=== PATIENT | male | born 1985 | race Caucasian/White ===

== ENCOUNTER 2020-12-16 18:13 | Emergency (ER) | payer OTHER, SELFPAY ==
--- NOTE | ~2020-12-16 | XR_ITS ---
EXAMINATION: XR TIBIA/FIBULA, RIGHT X-RAY ANKLE, RIGHT X-RAY ANKLE, LEFT CLINICAL INFORMATION: Pain, redness, swelling. COMPARISON: None TECHNIQUE: AP and lateral views of the right tibia/fibula. AP, mortise, and lateral views of the right and left ankle. FINDINGS: Right tibia/fibula: No acute fracture or dislocation. Mild medial compartment joint space narrowing within the right knee with small marginal osteophytes. No lytic or blastic osseous lesion. No abnormal soft tissue calcification. Right ankle: No acute fracture or dislocation. The ankle mortise is maintained. Tiny tibiotalar marginal osteophytes. No lytic or blastic osseous lesion. No abnormal soft tissue calcification. Mild circumferential soft tissue swelling. Left ankle: No acute fracture or dislocation. The ankle mortise is maintained. Tiny tibiotalar marginal osteophytes. No osseous erosion. No abnormal soft tissue calcification. Mild circumferential soft tissue swelling. XR/XR tibia fibula RT 2V IMPRESSION: Right tibia/fibula: Mild medial compartment osteoarthritis within the right knee. No acute osseous abnormality. Right ankle: Mild soft tissue swelling without acute osseous abnormality. Minimal tibiotalar arthrosis. Left ankle: Mild soft tissue swelling without acute osseous abnormality. Minimal tibiotalar arthrosis.
--- NOTE | ~2020-12-16 | XR_ITS ---
EXAMINATION: XR TIBIA/FIBULA, RIGHT X-RAY ANKLE, RIGHT X-RAY ANKLE, LEFT CLINICAL INFORMATION: Pain, redness, swelling. COMPARISON: None TECHNIQUE: AP and lateral views of the right tibia/fibula. AP, mortise, and lateral views of the right and left ankle. FINDINGS: Right tibia/fibula: No acute fracture or dislocation. Mild medial compartment joint space narrowing within the right knee with small marginal osteophytes. No lytic or blastic osseous lesion. No abnormal soft tissue calcification. Right ankle: No acute fracture or dislocation. The ankle mortise is maintained. Tiny tibiotalar marginal osteophytes. No lytic or blastic osseous lesion. No abnormal soft tissue calcification. Mild circumferential soft tissue swelling. Left ankle: No acute fracture or dislocation. The ankle mortise is maintained. Tiny tibiotalar marginal osteophytes. No osseous erosion. No abnormal soft tissue calcification. Mild circumferential soft tissue swelling. XR/XR ankle LT 2V IMPRESSION: Right tibia/fibula: Mild medial compartment osteoarthritis within the right knee. No acute osseous abnormality. Right ankle: Mild soft tissue swelling without acute osseous abnormality. Minimal tibiotalar arthrosis. Left ankle: Mild soft tissue swelling without acute osseous abnormality. Minimal tibiotalar arthrosis.
--- NOTE | ~2020-12-16 | US_ITS ---
EXAMINATION: US VENOUS ULTRASOUND WITH DOPPLER LOWER EXTREMITY, BILATERAL CLINICAL INFORMATION: Bilateral lower extremity pain and swelling COMPARISON: None TECHNIQUE: Ultrasound of the deep veins is performed from the hip to the calf with compression sonography and color and pulse Doppler assessment. Spectral analysis with color-flow imaging is performed. FINDINGS: RIGHT: There is normal venous compression and respiratory variation and augmented flow. The visualized common femoral vein, superficial femoral vein, profunda femoral vein, popliteal vein, and the trifurcation region shows no evidence of deep venous thrombosis. There is no significant popliteal fossa cyst. LEFT: There is normal venous compression and respiratory variation and augmented flow. The visualized common femoral vein, superficial femoral vein, profunda femoral vein, popliteal vein, and the trifurcation region shows no evidence of deep venous thrombosis. There is no significant popliteal fossa cyst. If the patient's symptoms persist, followup ultrasound in 5 days 7 days might be of value to exclude proximal propagation from a non-visualized calf vein. US/US venous duplex LE BI IMPRESSION: No DVT demonstrated in either lower extremity.
--- NOTE | ~2020-12-16 | XR_ITS ---
EXAMINATION: XR TIBIA/FIBULA, RIGHT X-RAY ANKLE, RIGHT X-RAY ANKLE, LEFT CLINICAL INFORMATION: Pain, redness, swelling. COMPARISON: None TECHNIQUE: AP and lateral views of the right tibia/fibula. AP, mortise, and lateral views of the right and left ankle. FINDINGS: Right tibia/fibula: No acute fracture or dislocation. Mild medial compartment joint space narrowing within the right knee with small marginal osteophytes. No lytic or blastic osseous lesion. No abnormal soft tissue calcification. Right ankle: No acute fracture or dislocation. The ankle mortise is maintained. Tiny tibiotalar marginal osteophytes. No lytic or blastic osseous lesion. No abnormal soft tissue calcification. Mild circumferential soft tissue swelling. Left ankle: No acute fracture or dislocation. The ankle mortise is maintained. Tiny tibiotalar marginal osteophytes. No osseous erosion. No abnormal soft tissue calcification. Mild circumferential soft tissue swelling. XR/XR ankle RT min 3V IMPRESSION: Right tibia/fibula: Mild medial compartment osteoarthritis within the right knee. No acute osseous abnormality. Right ankle: Mild soft tissue swelling without acute osseous abnormality. Minimal tibiotalar arthrosis. Left ankle: Mild soft tissue swelling without acute osseous abnormality. Minimal tibiotalar arthrosis.
[2020-12-16 18:54] VITALS: BP 110/72; PULSE 96; RESP 20; TEMP 37.1; O2SAT 96; BMI 27.4
--- NOTE | 2020-12-16 19:50 | ED_ITS ---
HPI - General Adult General Chief complaint: Extremity Injury, Lower Stated complaint: right leg pain Time Seen by Provider: 12/16/20 19:36 Source: patient Mode of arrival: ambulatory Limitations: no limitations History of Present Illness HPI narrative: Patient presents to the ED right posterior leg swelling with re dness and calf pain and redness and mild left ankle. Patient states having symptoms since Tuesday. Patient states on Tuesday he misses stepped into a ditch amount of irritated skin in a process. Patient denies any IV injection to lower extremities. Patient states no fever or chills. Patient denies any recent long travel. Related Data Previous Rx's Medication Instructions Recorded cephalexin 500 mg capsule 500 mg PO QID 7 Days #28 cap 12/17/20 doxycycline hyclate 100 mg capsule 100 mg PO BID 7 Days #14 cap 12/17/20 ketorolac 10 mg tablet 10 mg PO Q6H PRN 5 Days #20 tab 12/17/20 Allergies Allergy/AdvReac Type Severity Reaction Status Date / Time No Known Allergies Allergy Verified 12/16/20 21:29 Review of Systems Review of Systems: Yes all other systems are reviewed and are negative Constitutional: Constitutional: Reports as per HPI and Reports no additional constitutional complaints Eyes: Eyes: Reports as per HPI and Reports no additional eye complaints ENT: Reports system reviewed and no additional complaints, except as documented and Reports as per HPI Cardiovascular: Cardiovascular: Reports as per HPI and Reports no additional cardiovascular complaints Respiratory: Respiratory: Reports as per HPI and Reports no additional respiratory complaints Gastrointestinal: Gastrointestinal: Reports as per HPI and Reports no additional gastrointestinal complaints Genitourinary: Genitourinary: Reports no additional male genitourinary complaints and Reports as per HPI Musculoskeletal: Musculoskeletal: Reports no additional musculoskeletal complaints and Reports as per HPI Comments: Right leg posterior calf swelling and redness. Left ankle redness mild swelling. Neurologic: Reports system reviewed and no additional complaints, except as documented and Reports as per HPI Psychiatric: Psychiatric: Reports no additional psychiatric complaints and Reports as per HPI [facility] Past Medical History Medical History (Updated 12/17/20 @ 01:43 by PRISCILA Vidal) No known health problems Social History Social History Advance Directives: No Advance Directives Information Provided: No Physical Exam Vital Signs: Vital Signs: Last Vital Signs Temp 99.3 F 12/16/20 22:58 Pulse 83 12/16/20 22:58 Resp 18 12/16/20 22:58 BP 110/69 12/16/20 22:58 Pulse Ox 98 12/16/20 22:58 Body Mass Index 27.4 Const: General: cooperative, healthy appearing, comfortable, no acute distress, well developed, alert, awake and Physically active Orien tation/consciousness: patient oriented x3 HENMT: Head: Yes normal to inspection, Yes No palpable skull fracture present, Yes normocephalic and Yes atraumatic Eyes: General: appearance normal, both eyes and all related structures Neck: Neck: Yes normal visual inspection, Yes full ROM, Yes no lymphadenopathy, Yes no meningeal signs, Yes trachea midline, Yes supple and No tender Chest: Chest palpation & inspection: normal inspection of the chest and normal palpation of entire chest wall Resp: Effort & Inspection: normal respiratory effort and able to speak in complete sentences Auscultation: clear to auscultation bilaterally Cardio: Jugular venous distension: no JVD Heart sounds: S1 normal heart sound present and S2 normal heart sound present GI: Inspection: Yes normal to inspection and No abdominal wall ecchymosis Palpation (GI): Soft to palpation, not firm, nontender and no guarding : General: No CVA tenderness and Yes no CVA tenderness Back/Spine/Pelvis: Back: no CVA tenderness, No CVA tenderness and No back tenderness Skin: Other: Redness Neuro: General: patient oriented x3, gait normal, no meningeal signs and CN's II-XI intact bilaterally Cranial nerves: Yes CN's II-XII intact bilaterally Extrem: Other: Upper/lower leg/hip images: 1. Positive for erythema and calf tenderness on palpation. Negative for any palpable mass on palpation. Ankle/foot/toe images: 1. Redness, tenderness, slight swelling. Negative for any deformity or crepitus. Motor/nose/vascular exam is intact Course Course Course Narrative: Patient will have labs drawn, x-ray, and bilateral ultrasound. Reevaluation(s) Reevaluation #1: Lactic acid elevated, ESR CRP elevated. X-rays negative for osteomyelitis. Ultrasound negative for blood clot. D-dimer was not ordered at triage I did not order D-dimer. Not suspecting PE. Patient not have any chest pain or shortness of breath. Vital signs are stable. Spoke with Dr. Mazreah the hospitalist who states patient could be discharged with p.o. antibiotics and try a p.o. trial. We will repeat lactic acid. Time: 22:30 Reevaluation #2: Repeat lactic acid came back negative. Dr. Gresham hospitalist was made aware of lactcic acid and she states patient could be discharged. Patient will be discharged with antibiotics and Toradol. Patient i nformed if redness spreads beyond marker he should return to the ED immediately Time: 01:42 Medical Decision Making MDM Narrative Medical decision making narrative: Cellulitis Lab Data Result diagrams: 12/16/20 19:56 12/16/20 19:56 Labs: Lab Results 12/16/20 12/16/20 12/16/20 Range/Units 19:56 19:56 19:56 WBC 6.7 (4.8-10.8) X10*3/uL RBC 4.50 L (4.60-5.80) X10*6/uL Hgb 13.8 L (14.0-18.0) g/dl Hct 39.7 L (42-52) % MCV 88.2 (80-98) fL MCH 30.7 (27.0-33.0) pg MCHC 34.8 (31.0-36.0) g/dl RDW 12.0 (11.0-16.0) % Plt Count 236 (160-400) X10*3/uL MPV 9.4 (9.4-12.4) fL Absolute Nucleated RBC 0.000 (0.0-0.012) X10*3/uL Nucleated RBC % (auto) 0.0 (0.0-0.2) /100WBC ESR (0-15) MM/HR D-Dimer 1022 NG/ML Sodium 133 L (135-145) mmol/L Potassium 4.0 (3.3-5.1) mmol/L Chloride 96 (96-108) mmol/L Carbon Dioxide 26 (22-29) mmol/L Anion Gap 15 (12-20) BUN 11 (9-16) mg/dL Creatinine 1.07 (0.5-1.4) mg/dL Estim Creat Clear Calc 93.3 Estimated GFR > 60 Random Glucose 79 (60-115) mg/dL Lactic Acid (0.5-2.0) mmol/L Lactic Acid Fup @ 2Hr (0.5-2.0) mmol/L Calcium 9.0 (8.4-10.2) mg/dL Total Bilirubin 0.7 (0.0-1.0) mg/dL AST 45 H (5-37) U/L ALT 33 (0-40) U/L Alkaline Phosphatase 49 (39-117) U/L C-Reactive Protein (< or = 0.50) mg/dL Total Protein 7.1 (6.5-8.0) g/dL Albumin 4.0 (3.5-5.0) g/dL Coronavirus (PCR) (Negative) Influenza Type A (PCR) (Negative) Influenza Type B (PCR) (Negative) RSV RNA Qual (PCR) (Negative) 12/16/20 12/16/20 12/16/20 Range/Units 19:56 19:56 19:56 WBC (4.8-10.8) X10*3/uL RBC (4.60-5.80) X10*6/uL Hgb (14.0-18.0) g/dl Hct (42-52) % MCV (80-98) fL MCH (27.0-33.0) pg MCHC (31.0-36.0) g/dl RDW (11.0-16.0) % Plt Count (160-400) X10*3/uL MPV (9.4-12.4) fL Absolute Nucleated RBC (0.0-0.012) X10*3/uL Nucleated RBC % (auto) (0.0-0.2) /100WBC ESR 36 H (0-15) MM/HR D-Dimer NG/ML Sodium (135-145) mmol/L Potassium (3.3-5.1) mmol/L Chloride (96-108) mmol/L Carbon Dioxide (22-29) mmol/L Anion Gap (12-20) BUN (9-16) mg/dL Creatinine (0.5-1.4) mg/dL Estim Creat Clear Calc Estimated GFR Random Glucose (60-115) mg/dL Lactic Acid 2.6 H* (0.5-2.0) mmol/L Lactic Acid Fup @ 2Hr (0.5-2.0) mmol/L Calcium (8.4-10.2) mg/dL Total Bilirubin (0.0-1.0) mg/dL AST (5-37) U/L ALT (0-40) U/L Alkaline Phosphatase (39-117) U/L C-Reactive Protein 14.41 H (< or = 0.50) mg/dL Total Protein (6.5-8.0) g/dL Albumin (3.5-5.0) g/dL Coronavirus (PCR) (Negative) Influenza Type A (PCR) (Negative) Influenza Type B (PCR) (Negative) RSV RNA Qual (PCR) (Negative) 12/16/20 12/17/20 Range/Units 22:19 00:39 WBC (4.8-10.8) X10*3/uL RBC (4.60-5.80) X10*6/uL Hgb (14.0-18.0) g/dl Hct (42-52) % MCV (80-98) fL MCH (27.0-33.0) pg MCHC (31.0-36.0) g/dl RDW (11.0-16.0) % Plt Count (160-400) X10*3/uL MPV (9.4-12.4) fL Absolute Nucleated RBC (0.0-0.012) X10*3/uL Nucleated RBC % (auto) (0.0-0.2) /100WBC ESR (0-15) MM/HR D-Dimer NG/ML Sodium (135-145) mmol/L Potassium (3.3-5.1) mmol/L Chloride (96-108) mmol/L Carbon Dioxide (22-29) mmol/L Anion Gap (12-20) BUN (9-16) mg/dL Creatinine (0.5-1.4) mg/dL Estim Creat Clear Calc Estimated GFR Random Glucose (60-115) mg/dL Lactic Acid (0.5-2.0) mmol/L Lactic Acid Fup @ 2Hr 0.9 (0.5-2.0) mmol/L Calcium (8.4-10.2) mg/dL Total Bilirubin (0.0-1.0) mg/dL AST (5-37) U/L ALT (0-40) U/L Alkaline Phosphatase (39-117) U/L C-Reactive Protein (< or = 0.50) mg/dL Total Protein (6.5-8.0) g/dL Albumin (3.5-5.0) g/dL Coronavirus (PCR) NEGATIVE (Negative) Influenza Type A (PCR) NEGATIVE (Negative) Influenza Type B (PCR) NEGATIVE (Negative) RSV RNA Qual (PCR) NEGATIVE (Negative) Discharge Plan Discharge Clinical Impression: Cellulitis Patient Disposition: Home, Self-Care Instructions: Cellulitis (ED) Additional Instructions: Return to the ED for worsening redness, redness spreading beyond marker, chest pain, shortness of breath, fever, chills, weakness, dizziness, increased swelling, or any other concerning symptoms. Prescriptions: New cephalexin 500 mg capsule 500 mg PO QID 7 Days Qty: 28 RF: 0 doxycycline hyclate 100 mg capsule 100 mg PO BID 7 Days Qty: 14 RF: 0 ketorolac 10 mg tablet 10 mg PO Q6H PRN (Reason: pain) 5 Days Qty: 20 RF: 0 Stand Alone Forms: Work/School Release Print Language: [place]ayan
[2020-12-16 20:06] LABS: Hematocrit 39.7 % (42-52); Hemoglobin 13.8 g/dl (14.0-18.0); Mean Corpuscular HGB Conc 34.8 g/dl (31.0-36.0); Mean Corpuscular Hemoglobin 30.7 pg (27.0-33.0); Mean Corpuscular Volume 88.2 fL (80-98); Mean Platelet Volume 9.4 fL (9.4-12.4); Platelet Count 236 X10*3/uL (160-400); White Blood Count 6.7 X10*3/uL (4.8-10.8)
[2020-12-16 20:15] LABS: D Dimer 1022 NG/ML
[2020-12-16 20:33] LABS: C Reactive Protein 14.41 mg/dL (< or = 0.50)
[2020-12-16 20:35] LABS: Alanine Aminotransferase 33 U/L (0-40); Alkaline Phosphatase 49 U/L (39-117); Anion Gap 15 (12-20); Aspartate Amino Transferase 45 U/L (5-37); Bilirubin Total 0.7 mg/dL (0.0-1.0); Blood Urea Nitrogen 11 mg/dL (9-16); Carbon Dioxide 26 mmol/L (22-29); Chloride 96 mmol/L (96-108); Creatinine Clr Calc Pharmacy 93.3; Estimated Glomerular Filt Rate > 60; Glucose Random 79 mg/dL (60-115); Sodium 133 mmol/L (135-145); Total Protein 7.1 g/dL (6.5-8.0)
[2020-12-16 20:37] LABS: Lactic Acid 2.6 mmol/L (0.5-2.0)
[2020-12-16 20:44] LABS: Erythrocyte Sedimentation Rate 36 MM/HR (0-15)
[2020-12-16] MEDS: Piperacillin Sodium/Tazobactam 3.375 GM in 0.9 % Sodium Chloride 50 ML IV (21:29)
[2020-12-16] MEDS: 0.9 % Sodium Chloride 2,313.33 ML 2313.33 ML IV (21:34)
[2020-12-16] MEDS: vancomycin HCL 1,000 MG in 0.9 % Sodium Chloride 250 ML 270 MG IV (21:36)
[2020-12-16 22:03] LABS: Reflex Lactate? Lactic Acid Added
--- NOTE | 2020-12-16 22:06 | PC.NURSE ---
PT WILL BE ADMITTED FOR FOR CELLULITES PER PRISCILA SHEIKH PT MAY EART PER PRISCILA SHEIKH.
[2020-12-16 22:58] VITALS: BP 110/69; PULSE 83; RESP 18; TEMP 37.4; O2SAT 98
[2020-12-16 23:04] LABS: Influenza A PCR NEGATIVE (Negative); Influenza B PCR NEGATIVE (Negative); Resp Syncy Virus RNA Qual PCR NEGATIVE (Negative); SARS COV2 PCR INHOUSE NEGATIVE (Negative)
--- NOTE | 2020-12-17 00:39 | PC.NURSE ---
PT PRISCILA SHEIKH NOW THAT 2ND L OF FLUID FINISHED DRAW LACTIC.
[2020-12-17 01:10] LABS: ~Lactic Acid-LAB USE ONLY 0.9 mmol/L (0.5-2.0)
[2020-12-17] MEDS: Ketorolac Tromethamine 15 MG/ML VIAL 30 MG IVPUSH (01:32)
== END 2020-12-17 02:08 | disposition home or self-care (01) ==
PROVIDERS: Physician Assistant; Emergency Provider Emergency Medicine Emergency Medical Services; PCP Internal Medicine
DX: L03.116 Cellulitis of left lower limb (principal); L03.115 Cellulitis of right lower limb; M79.604 Pain in right leg; Z20.822 Contact with and (suspected) exposure to COVID-19
CPT/HCPCS: 0241U; 36415; 73590; 73600; 73610; 80053; 83605; 85027; 85379; 85652; 86140; 87040; 93970; 96361; 96365; 96368; 96375; 99284; J1885; J2543; J3370

== ENCOUNTER 2023-05-07 11:06 | Emergency (ER) | payer OTHER, SELFPAY ==
--- NOTE | ~2023-05-07 | XR_ITS ---
EXAMINATION: XR CHEST CLINICAL INFORMATION: Pain COMPARISON: CTA chest 02/05/2015 TECHNIQUE: 2 views of the chest were obtained. FINDINGS: The heart and mediastinal borders are normal. No focal consolidation. No pleural effusion. No pneumothorax. No acute osseous abnormality. XR/XR chest 2V IMPRESSION: Unremarkable examination.
[2023-05-07 11:42] VITALS: BP 111/69; PULSE 100; RESP 18; TEMP 38.5; O2SAT 95; BMI 32.3
--- NOTE | 2023-05-07 11:42 | ED.GENADULT ---
HPI - General Adult General Chief complaint: Nausea/Vomiting/Diarrhea Stated complaint: SOB/Back pain/Headache/Abd pain Time Seen by Provider: 05/07/23 14:40 Source: patient Mode of arrival: ambulatory Limitations: no limitations History of Present Illness HPI narrative: 37 yo male with no sig PMH here with c/o 3 days of nausea, low back pain, doesn't feel well, chills and fevers. His biggest issue is low back pain - he adamantly denies IVDA, hardware, he has no incontinence. He was around others sick for the holiday. MD complaint: fever Onset (ago): day(s) (3) Location: back Radiation: non-radiation Severity: moderate Quality: aching Pain Consistency: constant Relieving factors: rest Exacerbating factors: medication and movement Associated symptoms: fever/chills, headaches, loss of appetite, malaise and nausea/vomiting Treatments prior to arrival: none Related Data Previous Rx's Medication Instructions Recorded cephalexin 500 mg capsule 500 mg PO QID 7 days #28 caps 12/17/20 doxycycline hyclate 100 mg capsule 100 mg PO BID 7 days #14 caps 12/17/20 ketorolac 10 mg tablet 10 mg PO Q6H PRN pain 5 days #20 12/17/20 tabs cyclobenzaprine 10 mg tablet 10 mg PO TID PRN muscle spasm #20 05/07/23 tabs ibuprofen 600 mg tablet 600 mg PO Q6H PRN pain #30 tabs 05/07/23 ondansetron 4 mg disintegrating 4 mg PO Q8H PRN nausea and 05/07/23 tablet vomiting #20 tabs Allergies Allergy/AdvReac Type Severity Reaction Status Date / Time No Known Allergies Allergy Verified 12/16/20 21:29 Review of Systems Review of Systems: Constitutional : No Weight loss, pos Fever, pos Chills, ENT/Mouth : No Hearing loss, No Ear Pain, No Nasal Congestion, No Sinus Pain, No Hoarseness, No sore throat, No Rhinorrhea, No Swallowing Difficulty Cardiovascular : No Chest Pain, No SOB Respiratory : pos Cough, No Dyspnea Gastrointestinal : pos Nausea, No Vomiting, No Diarrhea, No abdominal Pain, No Hematochezia, No Melena Genitourinary : No Dysuria, No Urinary Frequency, No Hematuria, No Urinary Incontinence, Musculoskeletal : positive back pain Skin : No Skin Lesions, No rash Neuro : No Weakness, No Numbness, No Paresthesias, no loss of bowel or bladder incontinence, no saddle anesthesia All other systems reviewed and are negative [facility] Past Medical History Attestation statement: The following information was validated with the patient. Medical History No known health problems Social History Social History (Updated 05/07/23 @ 15:35 by Mary Shelton DO) Alcohol intake: current Patient Tobacco Use Status: Never used Tobacco Smoked in Last 30 Days: No Use of substances other than those prescribed or required for medical reasons: No Advance Directives: No Physical Exam ED Vital Signs: Vital Signs - 24 hr 05/07/23 11:42 05/07/23 15:05 Temperature 101.3 F H 99 F Pulse Rate 100 90 Respiratory Rate 18 18 Blood Pressure 111/69 108/75 Pulse Oximetry 95 97 Oxygen Delivery Method Room Air Room Air BMI result Body Mass Index 32.3 Appearance: Alert. Oriented X3. No acute distress. Eyes: Pupils equal, round and reactive to light. ENT: Pharynx normal. Neck: Normal inspection. Neck supple. normal ROM no meningeal signs CVS: Normal heart rate and rhythm. Pulses normal. Respiratory: No respiratory distress. Breath sounds normal. Abdomen: Soft and nontender. Back: ttp along paraspinals no midline ttp or step offs Skin: Skin warm and dry. Normal skin color. Normal skin turgor. Extremities: No lower extremity edema. No calf ttp Neuro: Oriented X 3. No motor deficit. No sensory deficit. Course Course Course Narrative: RME- 37 year old male presents for evaluation of headache and body aches over the last 3 days. Reports positive sick contacts. Plan for viral swabs Reevaluation(s) Reevaluation #1: signed out to Dr. Hart pending UA Reevaluation #2: UA reveals no UTI. Negative upper respiratory panel, negative strep pharyngitis. Time: 18:25 Medications Administered Discontinued Medications Generic Name Dose Route Start Last Admin Trade Name Freq PRN Reason Stop Dose Admin Acetaminophen 650 mg 05/07/23 14:51 05/07/23 15:10 Acetaminophen 325 Mg Tablet PO 05/07/23 14:52 650 mg ONCE ONE Administration Cyclobenzaprine HCl 10 mg 05/07/23 14:51 05/07/23 15:10 Cyclobenzaprine Hcl 10 Mg Tablet PO 05/07/23 14:52 10 mg ONCE ONE Administration Sodium Chloride 1,000 mls @ 999 mls/hr 05/07/23 15:00 05/07/23 15:11 Ns IV 05/07/23 16:00 Not Given .Q1H1M JERONIMO Ketorolac Tromethamine 15 mg 05/07/23 14:51 05/07/23 15:11 Ketorolac Tromethamine 15 Mg/Ml Vial IVPUSH 05/07/23 14:52 Not Given ONCE ONE Ondansetron HCl 4 mg 05/07/23 14:51 05/07/23 15:11 Ondansetron Hcl 4 Mg/2 Ml Vial IVPUSH 05/07/23 14:52 Not Given ONCE ONE Medical Decision Making Medical Decision Making [facility] Narrative: 37 yo male with no sig PMH no IVDA here with c/o low back pain - no b/b incontinence, no saddle anesthesia, headaches, nausea, body aches, overall feeling poorly, was around sick contacts at this time will need labs, offered IV fluids he declined, CXR for pneumonia, He is PERC negative, abdomen is benign doubt acute infection, possible pneumonia, viral infection, has no risk factors for acute abscess or spinal involvement. He is eating and drinking in the room. Differential Diagnosis Differential Diagnoses: The differential diagnosis associated with the presentation includes viral syndrome, UTI, has no CP, he has no urinary symptoms, he has no abdominal pain to suggest acute appendicitis, no IVDA to suggest endocarditis or disciitis/abscess, he his eating Admission/Observation Consideration of admission/observation: Escalation of care including admission/observation considered Lab Data [facility] Lab Attestation statement: I reviewed the patient's lab results. 05/07/23 13:01 05/07/23 13:01 Labs: Lab Results 05/07/23 05/07/23 05/07/23 Range/Units 11:54 13:01 17:45 WBC 7.1 (4.8-10.8) X10*3/uL RBC 5.05 (4.60-5.80) X10*6/uL Hgb 14.5 (14.0-18.0) g/dl Hct 44.0 (42.0-52.0) % MCV 87.1 (80.0-98.0) fL MCH 28.7 (27.0-33.0) pg MCHC 33.0 (31.0-36.0) g/dl RDW 12.8 (11.0-16.0) % Plt Count 231 (160-400) X10*3/uL MPV 9.8 (9.4-12.4) fL Immature Gran % (Auto) 0.6 H (0.0-0.4) % Neut % (Auto) 74.8 H (45-73) % Lymph % (Auto) 11.0 L (20-40) % [place] % (Auto) 11.9 H (2-11) % Eos % (Auto) 1.4 (0-4) % Baso % (Auto) 0.3 (0-2) % Lymph # (Auto) 0.8 L (1.2-4.9) X10*3/uL [place] # (Auto) 0.8 (0.1-1.2) X10*3/uL Eos # (Auto) 0.1 (0.0-0.4) X10*3/uL Baso # (Auto) 0.0 (0.0-0.2) X10*3/uL Abs Immat Gran (auto) 0.04 H (0.00-0.03) X10*3/uL Absolute Neuts (auto) 5.3 (2.0-8.3) x10*3/uL Absolute Nucleated RBC 0.000 (0.0-0.012) X10*3/uL Nucleated RBC % (auto) 0.0 (0.0-0.2) /100WBC Sodium 136 (135-145) mmol/L Potassium 3.6 (3.3-5.1) mmol/L Chloride 104 (96-108) mmol/L Carbon Dioxide 23 (22-29) mmol/L Anion Gap 13 (12-20) BUN 9 (9-16) mg/dL Creatinine 0.88 (0.5-1.4) mg/dL Estim Creat Clear Calc 120.0 Estimated GFR > 60 Random Glucose 95 (60-115) mg/dL Lactic Acid 1.0 (0.5-2.0) mmol/L Calcium 8.7 (8.4-10.2) mg/dL Total Bilirubin 0.6 (0.0-1.0) mg/dL AST 18 (5-37) U/L ALT 47 H (0-40) U/L Alkaline Phosphatase 39 (39-117) U/L Total Protein 7.4 (6.5-8.0) g/dL Albumin 4.2 (3.5-5.0) g/dL Lipase 17 (8-78) U/L Urine Color Dark Yellow Urine Appearance Clear Urine pH 5.5 (5.0-9.0) Ur Specific [place] >= 1.030 H (1.005-1.025) Urine Protein Trace (Neg-Trace) mg/dL Urine Glucose (UA) Negative (Negative) mg/dL Urine Ketones Trace (Negative) mg/dL Urine Blood Negative (Negative) Urine Nitrite Negative (Negative) Ur Leukocyte Esterase Negative (Negative) Urine RBC 0-2 (0-2) /HPF Urine WBC 0-5 (0-5) /HPF Ur Squamous Epith Cells 0-2 (0-2) /HPF Urine Bacteria None Seen (None Seen) Hyaline Casts 0-2 (0-2) /LPF Influenza Type A (PCR) NEGATIVE (Negative) Influenza Type B (PCR) NEGATIVE (Negative) RSV RNA Qual (PCR) NEGATIVE (Negative) SARS-CoV-2 RNA (RT-PCR) NEGATIVE (Negative) S. pyogenes GrpA KIANNA Negative (Negative) Independent Interpretation I performed an independent interpretation of an: Plain X-Ray (no pneumonia seen) Radiology Impression Discussion of test interpretation with radiology: I have reviewed the radiologist's reading. Prescription Management I considered prescription management with: Other Discharge Plan Discharge Clinical Impression: Acute viral syndrome Fever Qualifiers: Fever type: unspecified Qualified Code(s): R50.9 - Fever, unspecified Back pain Qualifiers: Back pain location: low back pain Chronicity: acute Back pain laterality: bilateral Sciatica presence: without sciatica Qualified Code(s): M54.50 - Low back pain, unspecified Patient Disposition: Home, Self-Care Instructions: Fever in Adults (ED), Viral Syndrome (ED), Back Pain (ED) Additional Instructions: flu, covid, rsv negative chest xray was negative labs reassuring strep negative sent off cultures for blood suspect viral syndrome if symptoms worsen unable to eat or drink, confusion, numbness, weakness, loss of control of bowel or bladder please return. we will call you if blood cultures positive Prescriptions: New cyclobenzaprine 10 mg tablet 10 mg PO TID PRN (Reason: muscle spasm) Qty: 20 0RF ibuprofen 600 mg tablet 600 mg PO Q6H PRN (Reason: pain) Qty: 30 0RF ondansetron 4 mg tablet,disintegrating 4 mg PO Q8H PRN (Reason: nausea and vomiting) Qty: 20 0RF No Action cephalexin 500 mg capsule 500 mg PO QID 7 Days Qty: 28 0RF doxycycline hyclate 100 mg capsule 100 mg PO BID 7 Days Qty: 14 0RF ketorolac 10 mg tablet 10 mg PO Q6H PRN (Reason: pain) 5 Days Qty: 20 0RF Rx Instructions: Do not take any motrin or naproxen/alleve with this medication. Stand Alone Forms: Work/School Release
[2023-05-07 12:37] LABS: Influenza A PCR NEGATIVE (Negative); Influenza B PCR NEGATIVE (Negative); Resp Syncy Virus RNA Qual PCR NEGATIVE (Negative); SARS COV2 PCR INHOUSE NEGATIVE (Negative)
[2023-05-07 13:07] LABS: MANUAL DIFF FLAG NO
[2023-05-07 13:09] LABS: Basophils Percent Auto 0.3 % (0-2); Eosinophils Absolute Auto 0.1 X10*3/uL (0.0-0.4); Eosinophils Percent Auto 1.4 % (0-4); Hemoglobin 14.5 g/dl (14.0-18.0); Imm Gran Abs Auto 0.04 X10*3/uL (0.00-0.03); Imm Gran Pct Auto 0.6 % (0.0-0.4); Lymphocytes Absolute Auto 0.8 X10*3/uL (1.2-4.9); Mean Corpuscular Hemoglobin 28.7 pg (27.0-33.0); Mean Corpuscular Volume 87.1 fL (80.0-98.0); Mean Platelet Volume 9.8 fL (9.4-12.4); Monocytes Absolute Auto 0.8 X10*3/uL (0.1-1.2); Monocytes Percent Auto 11.9 % (2-11); Neutrophils Absolute Auto 5.3 x10*3/uL (2.0-8.3); Neutrophils Percent Auto 74.8 % (45-73); Platelet Count 231 X10*3/uL (160-400); Red Blood Count 5.05 X10*6/uL (4.60-5.80); Red Cell Distribution Width 12.8 % (11.0-16.0); White Blood Count 7.1 X10*3/uL (4.8-10.8)
[2023-05-07 13:24] LABS: Alanine Aminotransferase 47 U/L (0-40); Albumin Level 4.2 g/dL (3.5-5.0); Alkaline Phosphatase 39 U/L (39-117); Anion Gap 13 (12-20); Aspartate Amino Transferase 18 U/L (5-37); Bilirubin Total 0.6 mg/dL (0.0-1.0); Blood Urea Nitrogen 9 mg/dL (9-16); Calcium 8.7 mg/dL (8.4-10.2); Carbon Dioxide 23 mmol/L (22-29); Chloride 104 mmol/L (96-108); Estimated Glomerular Filt Rate > 60; Glucose Random 95 mg/dL (60-115); Lipase 17 U/L (8-78); Potassium 3.6 mmol/L (3.3-5.1); Sodium 136 mmol/L (135-145); Total Protein 7.4 g/dL (6.5-8.0)
[2023-05-07 13:27] LABS: IDNOW Serial# 08D9AD1C; Strep A Nucleic Acid Negative (Negative)
[2023-05-07 15:05] VITALS: BP 108/75; PULSE 90; RESP 18; TEMP 37.2; O2SAT 97
[2023-05-07] MEDS: Cyclobenzaprine HCl 10 MG TABLET PO (15:10)
[2023-05-07] MEDS: Acetaminophen 325 MG TABLET 650 MG PO (15:10)
--- NOTE | 2023-05-07 16:18 | PC.NURSE ---
pt aox4. ambulatory. reporting back pain and abd pain for about 2 days. Pt refused IV line/fluids and IV meds. PO meds given per mar. Provider notified, pt cleared to eat per provider. plan of care ongoing
[2023-05-07 17:56] LABS: Appearance Urine Clear; Color Urine Dark Yellow; Glucose Urine UA Negative (Negative); Leukocyte Esterase Urine Negative (Negative); Nitrite Urine Negative (Negative); PH 5.5 (5.0-9.0); Specific Gravity - Urine >= 1.030 (1.005-1.025); Urine Blood Negative (Negative); Urine Ketones Trace mg/dL (Negative); Urine Protein Trace mg/dL (Neg-Trace)
[2023-05-07 18:01] LABS: Bacteria Urine None Seen (None Seen); Hyaline Casts Urine 0-2 /LPF (0-2); RBC Urine 0-2 /HPF (0-2); Squamous Epithelial Cell Urine 0-2 /HPF (0-2); WBC Urine 0-5 /HPF (0-5)
== END 2023-05-07 18:57 | disposition home or self-care (01) ==
PROVIDERS: Physician Assistant; Emergency Provider Emergency Medicine; PCP Internal Medicine
DX: B34.9 Viral infection, unspecified (principal); R06.02 Shortness of breath; M54.50 Low back pain, unspecified; R51.9 Headache, unspecified; R10.9 Unspecified abdominal pain; R50.9 Fever, unspecified; R11.2 Nausea with vomiting, unspecified; Z20.828 Contact with and (suspected) exposure to other viral communicable diseases; Z20.822 Contact with and (suspected) exposure to COVID-19; Z79.899 Other long term (current) drug therapy
CPT/HCPCS: 0241U; 71046; 80053; 81001; 83605; 83690; 85025; 87040; 87651; 99283; 99284